=== PATIENT | female | born 1960 | race Caucasian/White ===

== ENCOUNTER 2017-11-11 16:07 | Emergency (ER) | payer MEDICAID, OTHER ==
[2017-11-11] MEDS: SOD CHLORIDE 0.9% 1,000 ML IV (16:39)
[2017-11-11 16:42] LABS: ADD MAN DIFF? NO
[2017-11-11 16:47] LABS: WHITE BLOOD COUNT 11.5 10^3/ul (4.8-10.8)
[2017-11-11 16:47] LABS: BASOPHIL # 0.1 10^3/ul (0.0-0.1); EOSINOPHILS % 0.1 % (0.0-7.0); HEMATOCRIT 36.4 % (37.0-47.0); LYMPHOCYTES # 2.4 10^3/ul (0.8-2.9); LYMPHOCYTES % 20.5 % (15.0-51.0); MEAN CORPUSCULAR HEMOGLOBIN 28.3 pg (29.0-33.0); MEAN CORPUSCULAR VOLUME 85.8 fl (82.0-101.0); MEAN PLATELET VOLUME 8.9 fl (7.4-10.4); MONOCYTE # 0.5 10^3/ul (0.3-0.9); MONOCYTES % 4.3 % (0.0-11.0); NEUTROPHIL # 8.5 10^3/ul (1.6-7.5); NEUTROPHILS % 73.8 % (39.0-77.0); PLATELET COUNT 574 10^3/UL (140-415); RED BLOOD COUNT 4.24 10^6/ul (4.20-5.40); RED CELL DISTRIBUTION WIDTH 15.6 % (11.5-14.5)
[2017-11-11 17:07] LABS: ALANINE AMINOTRANSFERASE 38 IU/L (13-69); ALBUMIN/GLOBULIN RATIO 1.08; ALKALINE PHOSPHATASE 83 IU/L (42-121); ANION GAP 16 (8-16); ASPARTATE AMINO TRANSFERASE 40 IU/L (15-46); BILIRUBIN,INDIRECT 0.3 mg/dl (0-1.1); BILIRUBIN,TOTAL 0.3 mg/dl (0.2-1.3); BLOOD UREA NITROGEN 19 mg/dl (7-20); CALCIUM 9.2 mg/dl (8.4-10.2); CARBON DIOXIDE 29 mmol/L (21-31); CHLORIDE 99 mmol/L (97-110); CREATININE 0.94 mg/dl (0.44-1.00); GLUCOSE 120 mg/dl (70-220); LIPASE 62 U/L (23-300); SODIUM 140 mmol/L (135-144); TOTAL PROTEIN 7.7 g/dl (6.1-8.1)
[2017-11-11 17:09] LABS: INR 0.99; PROTIME 13.2 Sec (11.9-14.9); SALICYLATE < 1.0 mg/dl (5.0-30.0)
[2017-11-11 17:09] LABS: ACETAMINOPHEN < 10.0 ug/ml (10.0-30.0)
[2017-11-11 17:10] LABS: PARTIAL THROMBOPLASTIN TIME 25.2 Sec (25.0-35.0)
[2017-11-11] MEDS ORDERED: ACETAMINOPHEN 325 MG TAB PO (18:30)
[2017-11-11] MEDS ORDERED: NACL 0.9% 3 ML SYG IV (18:30)
[2017-11-11] MEDS ORDERED: ONDANSETRON 4 MG INJ IV (18:30)
[2017-11-11] MEDS ORDERED: ACET/BUTAL/CAFF TAB PO (19:00)
[2017-11-11] MEDS ORDERED: SOD CHLORIDE 0.9% 1,000 ML IV (20:00)
[2017-11-12 05:51] LABS: ADD MAN DIFF? NO
[2017-11-12 05:54] LABS: BASOPHIL # 0.1 10^3/ul (0.0-0.1); BASOPHILS % 1.2 % (0.0-2.0); EOSINOPHILS # 0.1 10^3/ul (0.0-0.5); EOSINOPHILS % 1.1 % (0.0-7.0); HEMATOCRIT 31.6 % (37.0-47.0); HEMOGLOBIN 10.6 g/dl (12.0-16.0); LYMPHOCYTES # 3.4 10^3/ul (0.8-2.9); LYMPHOCYTES % 40.6 % (15.0-51.0); MEAN CORPUSCULAR HEMOGLOBIN 28.7 pg (29.0-33.0); MEAN CORPUSCULAR HGB CONC 33.5 g/dl (32.0-37.0); MEAN CORPUSCULAR VOLUME 85.6 fl (82.0-101.0); MONOCYTE # 0.5 10^3/ul (0.3-0.9); MONOCYTES % 6.3 % (0.0-11.0); NEUTROPHIL # 4.2 10^3/ul (1.6-7.5); NEUTROPHILS % 50.4 % (39.0-77.0); PLATELET COUNT 479 10^3/UL (140-415); RED BLOOD COUNT 3.69 10^6/ul (4.20-5.40); RED CELL DISTRIBUTION WIDTH 15.5 % (11.5-14.5)
[2017-11-12 05:54] LABS: WHITE BLOOD COUNT 8.3 10^3/ul (4.8-10.8)
[2017-11-12 06:14] LABS: ANION GAP 12 (8-16); BLOOD UREA NITROGEN 15 mg/dl (7-20); CALCIUM 8.8 mg/dl (8.4-10.2); CARBON DIOXIDE 29 mmol/L (21-31); CHLORIDE 102 mmol/L (97-110); CREATININE 0.84 mg/dl (0.44-1.00); GLUCOSE 90 mg/dl (70-220); MAGNESIUM 1.9 mg/dl (1.7-2.5); PHOSPHORUS 2.8 mg/dl (2.5-4.9); POTASSIUM 3.7 mmol/L (3.5-5.1); SODIUM 139 mmol/L (135-144)
== END 2017-11-12 13:09 | disposition home or self-care (01) ==
LOC: E/R 11-12 13:09
DX: K62.5 Hemorrhage of anus and rectum (principal)
CPT/HCPCS: 36415; 80048; 80053; 80307; 83690; 83735; 84100; 85025; 85610; 85730; 86850; 86900; 86901; 96360; 99284-25